=== PATIENT | female | born 1970 | race Caucasian/White ===

== ENCOUNTER → 2019-04-30 14:59 | Outpatient (CLI) | payer OTHER, SELFPAY ==
[2019-04-30 14:25] VITALS: BMI 32.2
[2019-04-30 17:44] LABS: Alanine Aminotransfer ALT/SGPT 22 U/L (13-56)
[2019-05-01 08:34] LABS: HIV - WCH Non-Reactive (Nonreactive)
[2019-05-01 09:36] LABS: Hepatitis B Surface Antibody Reactive
[2019-05-04 11:35] LABS: Hepatitis C Antibody Non-Reactive (Nonreactive)
== END ==
PROVIDERS: Referring Provider Physician Assistant; Visit Provider Physician Assistant
DX: Z57.9 Occupational exposure to unspecified risk factor (principal); Z77.21 Contact with and (suspected) exposure to potentially hazardous body fluids
CPT/HCPCS: 36415; 84460; 86703; 86706; 86803

== ENCOUNTER → 2019-06-16 10:31 | Outpatient (CLI) | payer OTHER, SELFPAY ==
[2019-04-30 14:25] VITALS: BMI 32.2
[2019-06-16 12:52] LABS: Alanine Aminotransfer ALT/SGPT 20 U/L (13-56)
[2019-06-16 13:41] LABS: HIV - WCH Non-Reactive (Nonreactive)
[2019-06-18 03:06] LABS: HCV Quant. RNA PCR HCV Not Detected IU/mL (.)
== END ==
PROVIDERS: Referring Provider Physician Assistant; Visit Provider Physician Assistant
DX: Z57.9 Occupational exposure to unspecified risk factor (principal); Z77.21 Contact with and (suspected) exposure to potentially hazardous body fluids
CPT/HCPCS: 36415; 84460; 86703; 87522